=== PATIENT | female | born 1975 | race Caucasian/White ===

== ENCOUNTER 2019-08-23 12:48 | Emergency (ER) | payer BC ==
--- NOTE | 2019-08-23 13:48 | RAD ---
3 VIEWS RIGHT FOOT; Date: 08/23/19 COMPARISON: None. HISTORY: Right foot pain after dropping a heavy object on the foot. FINDINGS: 3 views of the right foot show no evidence of acute fracture or dislocation. Moderate dorsal soft tis [place] swelling is seen. No degenerative changes are seen in the midfoot. Mild degenerative change is se en in the great toe interphalangeal joint. IMPRESSION: No evidence of acute osseous abnormality. POS: CET
== END 2019-08-23 14:38 | disposition home or self-care (01) ==
LOC: MADERS 12:48
DX: S90.31XA Contusion of right foot, initial encounter (principal); I10 Essential (primary) hypertension; F17.290 Nicotine dependence, other tobacco product, uncomplicated; Z79.899 Other long term (current) drug therapy; W20.8XXA Other cause of strike by thrown, projected or falling object, initial encounter